=== PATIENT | male | born 1990 | race African-American/Black ===

== ENCOUNTER 2020-11-03 18:11 | Inpatient (IN) | payer OTHER ==
[2020-11-03 20:13] VITALS: BP 115/71; PULSE 78; TEMP 97.8; BMI 29.4
[2020-11-03] MEDS ORDERED: LORazepam 1 MG TABLET PO PRN (21:16)
[2020-11-03] MEDS ORDERED: IBUPROFEN 400 MG TABLET (FP) PO PRN (21:16)
[2020-11-03] MEDS ORDERED: MENTHOL/PHENOL 1 EACH UD MM PRN (21:16)
[2020-11-03] MEDS ORDERED: METHOCARBAMOL 500 MG TABLET PO PRN (21:16)
[2020-11-03] MEDS ORDERED: MAGNESIUM HYDROX 2400MG/30ML ORAL SUSPENSION 30 ML CUP PO PRN (21:16)
[2020-11-03] MEDS ORDERED: MAG HYDROX/AL HYDROX/SIMETH 30 ML UNIT-DOSE CUP PO PRN (21:16)
[2020-11-03] MEDS ORDERED: MAGNESIUM CITRATE 300 ML BOTTLE PO PRN (21:16)
[2020-11-03] MEDS ORDERED: ACETAMINOPHEN 325 MG TABLET (FP) PO PRN ×2 (21:16)
[2020-11-03] MEDS ORDERED: ONDANSETRON *ODT* 4 MG TABLET SL PRN (21:16)
[2020-11-03] MEDS ORDERED: BISMUTH SUBSALICYLATE 524 MG/30 ML UD PO PRN (21:16)
[2020-11-03] MEDS ORDERED: MELATONIN 5 MG TABLETS PO SCH (22:00)
[2020-11-03] MEDS ORDERED: THIAMINE HCL 100 MG TABLET (FP) PO SCH (22:00)
[2020-11-03] MEDS ORDERED: INSULIN SLIDING SCALE (NOVOLOG) 1 VIAL SQ SCH ×2 (22:00)
[2020-11-03] MEDS ORDERED: LORazepam 2 MG TABLET PO SCH (23:00)
[2020-11-04] MEDS ORDERED: PRENATAL VITAMINS W/ FOLIC ACID TABLET (FP) PO SCH (10:00)
[2020-11-05] MEDS ORDERED: LORazepam 1 MG TABLET PO SCH (05:00)
[2020-11-06] MEDS ORDERED: LORazepam 0.5 MG TABLET PO PRN
[2020-11-06] MEDS ORDERED: LORazepam 0.5 MG TABLET PO SCH (05:00)
[2020-11-07] MEDS ORDERED: LORazepam 0.5 MG TABLET PO ONE (05:00)
== END 2020-11-04 07:35 | disposition short-term general hospital (02) | DRG 775 ==
LOC: YASAS 18:11 → Y6N 21:49
PROVIDERS: ADMIT Allergy & Immunology; ATTEND Allergy & Immunology
PROC: HZ2ZZZZ Detoxification Services for Substance Abuse Treatment (ICD-10-PCS; principal; 2020-11-03)
DX: F10.230 Alcohol dependence with withdrawal, uncomplicated (principal); K74.60 Unspecified cirrhosis of liver; E11.9 Type 2 diabetes mellitus without complications; R17 Unspecified jaundice; R60.0 Localized edema; Z87.891 Personal history of nicotine dependence; Z56.0 Unemployment, unspecified; Z59.0 Homelessness
CPT/HCPCS: 82962; C9803; U0003; U0005

== ENCOUNTER 2020-11-03 22:37 | Inpatient (IN) | payer OTHER ==
[2020-11-03 23:42] LABS: BASO % 1.3 % (0-2.0); EOS % 4.6 % (0-4.5); HEMATOCRIT 22.8 % (35.4-49); HEMOGLOBIN 7.7 GM/dL (11.7-16.9); LYMPH % 37.5 % (8-40); MCH 34.1 pg (25.7-33.7); MCHC 33.9 g/dl (32.0-35.9); MEAN CELL VOLUME 100.6 fl (80-96); MEAN PLT VOLUME 9.1 fl (7.5-11.1); MONO % 10.2 % (3.8-10.2); NEUT % 46.4 % (42.8-82.8); PLATELET COUNT 46 K/MM3 (134-434); RBC 2.26 M/mm3 (4.00-5.60); RDW 18.6 % (11.9-15.9); WHITE BLOOD COUNT 2.7 K/mm3 (4.0-10.0)
[2020-11-03 23:51] LABS: INR 1.66 (0.83-1.09); PROTHROMBIN TIME (PATIENT) 20.1 SEC (9.7-13.0)
[2020-11-03 23:54] LABS: ACTIVATED PTT 37.2 SECONDS (25.2-36.5)
[2020-11-04 00:01] LABS: CHLORIDE 114 mmol/L (98-107); SODIUM 145 mmol/L (136-145)
[2020-11-04 00:03] LABS: ALBUMIN 1.8 g/dl (3.4-5.0); ANION GAP 5 MMOL/L (8-16); CALCIUM 7.3 mg/dL (8.5-10.1); CO2 26 mmol/L (21-32)
[2020-11-04 00:04] LABS: GLUCOSE,RANDOM 103 mg/dL (74-106)
[2020-11-04 00:06] LABS: SGOT/AST 116 U/L (15-37); SGPT/ALT 40 U/L (13-61)
[2020-11-04 00:07] LABS: CREATININE 0.8 mg/dL (0.55-1.3)
[2020-11-04 00:08] LABS: BILIRUBIN,TOTAL 5.8 mg/dL (0.2-1); TOT PROT 4.8 g/dl (6.4-8.2)
[2020-11-04 00:09] LABS: ALK PHOS 347 U/L (45-117)
[2020-11-04 01:55] LABS: BILIRUBIN,DIRECT 4.8 mg/dL (0.0-0.2)
[2020-11-04] MEDS ORDERED: POTASSIUM CHLORIDE ORAL LIQUID 20 MEQ/15 ML PO ONE (02:55)
[2020-11-04] MEDS ORDERED: POTASSIUM CHLORIDE ORAL LIQUID 20 MEQ/15 ML ONE (02:58)
[2020-11-04] MEDS ORDERED: FOLIC ACID INJECTION - 1 MG, THIAMINE HCL 100 MG, MULTIVIT INJECTION ADULT 10 ML in SOD... IVPB ONE (03:07)
[2020-11-04 03:24] LABS: LIPASE 217 U/L (73-393)
[2020-11-04] MEDS ORDERED: LORazepam 2 MG/ML SDV VIAL IVPUSH SCH (06:00)
[2020-11-04] MEDS ORDERED: LORazepam 2 MG/ML SDV VIAL IVPUSH PRN (06:09)
[2020-11-04] MEDS: INSULIN SLIDING SCALE (NOVOLOG) 1 VIAL SQ SCH ×4 (06:34→21:48)
[2020-11-04 07:37] VITALS: BMI 28.0
[2020-11-04] MEDS ORDERED: LACTULOSE 20 GM/30 ML UDC (FOR ORAL USE ONLY) PO PRN ×2 (10:00)
[2020-11-04] MEDS: SPIRONOLACTONE 25 MG TABLET PO SCH (10:13)
[2020-11-04] MEDS: FUROSEMIDE 40 MG TABLET (FP) PO SCH (10:14)
[2020-11-04] MEDS: MULTIVITAMINS (DAILY MVI) TABLET (FP) PO SCH (10:14)
[2020-11-04] MEDS: THIAMINE HCL 100 MG TABLET (FP) PO SCH (10:14)
[2020-11-04] MEDS: FOLIC ACID 1 MG TABLET (FP) PO SCH (10:14)
[2020-11-04] MEDS: LACTULOSE 20 GM/30 ML UDC (FOR ORAL USE ONLY) PO SCH ×3 (10:14→21:48)
[2020-11-04] MEDS: PrednisoLONE 15 MG/5 ML UNIT-DOSE CUP PO SCH (10:15)
[2020-11-04 10:45] LABS: HEMATOCRIT 24.2 % (35.4-49); HEMOGLOBIN 8.2 GM/dL (11.7-16.9); MCH 34.4 pg (25.7-33.7); MCHC 34.1 g/dl (32.0-35.9); MEAN CELL VOLUME 100.9 fl (80-96); MEAN PLT VOLUME 8.3 fl (7.5-11.1); RDW 18.6 % (11.9-15.9); WHITE BLOOD COUNT 3.4 K/mm3 (4.0-10.0)
[2020-11-04 10:51] LABS: INR 1.66 (0.83-1.09); PROTHROMBIN TIME (PATIENT) 19.8 SEC (9.7-13.0)
[2020-11-04 10:52] LABS: PLATELET COUNT 34 K/MM3 (134-434)
[2020-11-04 11:08] LABS: CALCIUM 7.6 mg/dL (8.5-10.1)
[2020-11-04 11:09] LABS: ALBUMIN 1.7 g/dl (3.4-5.0)
[2020-11-04 11:10] LABS: MAGNESIUM 1.3 mg/dL (1.8-2.4)
[2020-11-04 11:12] LABS: PHOSPHOROUS 2.5 mg/dL (2.5-4.9)
[2020-11-04 11:13] LABS: BILIRUBIN,TOTAL 6.8 mg/dL (0.2-1); CREATININE 0.7 mg/dL (0.55-1.3); TOT PROT 4.7 g/dl (6.4-8.2)
[2020-11-05] MEDS: INSULIN SLIDING SCALE (NOVOLOG) 1 VIAL SQ SCH ×4 (07:09→21:33)
[2020-11-05] MEDS: LACTULOSE 20 GM/30 ML UDC (FOR ORAL USE ONLY) PO SCH ×3 (07:09→21:29)
[2020-11-05 08:19] LABS: HEMATOCRIT 23.4 % (35.4-49); HEMOGLOBIN 8.3 GM/dL (11.7-16.9); MCH 35.2 pg (25.7-33.7); MCHC 35.4 g/dl (32.0-35.9); MEAN CELL VOLUME 99.6 fl (80-96); MEAN PLT VOLUME 8.8 fl (7.5-11.1); PLATELET COUNT 37 K/MM3 (134-434); RBC 2.35 M/mm3 (4.00-5.60); RDW 18.1 % (11.9-15.9); WHITE BLOOD COUNT 4.7 K/mm3 (4.0-10.0)
[2020-11-05 08:40] LABS: CHLORIDE 110 mmol/L (98-107); SODIUM 143 mmol/L (136-145)
[2020-11-05 08:58] LABS: ALBUMIN 1.7 g/dl (3.4-5.0); BLOOD UREA NITROGEN 9.7 mg/dL (7-18); CO2 26 mmol/L (21-32); GLUCOSE,RANDOM 98 mg/dL (74-106)
[2020-11-05 08:59] LABS: CALCIUM 7.5 mg/dL (8.5-10.1); MAGNESIUM 1.1 mg/dL (1.8-2.4)
[2020-11-05 09:02] LABS: CREATININE 0.9 mg/dL (0.55-1.3); SGOT/AST 86 U/L (15-37); SGPT/ALT 35 U/L (13-61)
[2020-11-05 09:03] LABS: BILIRUBIN,TOTAL 7.2 mg/dL (0.2-1); PHOSPHOROUS 2.5 mg/dL (2.5-4.9)
[2020-11-05 09:04] LABS: TOT PROT 4.7 g/dl (6.4-8.2)
[2020-11-05] MEDS ORDERED: LORazepam 1 MG TABLET PO PRN (09:33)
[2020-11-05 09:42] LABS: ALK PHOS 258 U/L (45-117); ANION GAP 7 MMOL/L (8-16)
[2020-11-05] MEDS: THIAMINE HCL 100 MG TABLET (FP) PO SCH (10:48)
[2020-11-05] MEDS: FOLIC ACID 1 MG TABLET (FP) PO SCH (10:48)
[2020-11-05] MEDS: MULTIVITAMINS (DAILY MVI) TABLET (FP) PO SCH (10:48)
[2020-11-05] MEDS: FUROSEMIDE 40 MG TABLET (FP) PO SCH (10:48)
[2020-11-05] MEDS: LORazepam 1 MG TABLET PO SCH ×3 (10:49→23:57)
[2020-11-05] MEDS: SPIRONOLACTONE 25 MG TABLET PO SCH (10:49)
[2020-11-05] MEDS: PrednisoLONE 15 MG/5 ML UNIT-DOSE CUP PO SCH (10:50)
[2020-11-05] MEDS ORDERED: POTASSIUM CHLORIDE TABS 20 MEQ TABLET.ER (FP) PO ONE (10:53)
[2020-11-05] MEDS ORDERED: MAGNESIUM SULF 50% (8.12 MEQ/2 ML-1 GM VIAL) IVPB ONE (11:15)
[2020-11-06] MEDS: LACTULOSE 20 GM/30 ML UDC (FOR ORAL USE ONLY) PO SCH ×3 (06:04→23:23)
[2020-11-06] MEDS: LORazepam 1 MG TABLET PO SCH ×4 (06:04→23:24)
[2020-11-06] MEDS: INSULIN SLIDING SCALE (NOVOLOG) 1 VIAL SQ SCH ×4 (06:13→23:25)
[2020-11-06 08:12] LABS: BASO % 0.3 % (0-2.0); EOS % 1.7 % (0-4.5); HEMATOCRIT 25.4 % (35.4-49); LYMPH % 19.6 % (8-40); MCH 35.3 pg (25.7-33.7); MCHC 35.4 g/dl (32.0-35.9); MEAN CELL VOLUME 99.6 fl (80-96); MEAN PLT VOLUME 8.9 fl (7.5-11.1); MONO % 6.6 % (3.8-10.2); NEUT % 71.8 % (42.8-82.8); PLATELET COUNT 41 K/MM3 (134-434); RBC 2.55 M/mm3 (4.00-5.60); RDW 17.7 % (11.9-15.9); WHITE BLOOD COUNT 6.1 K/mm3 (4.0-10.0)
[2020-11-06 08:39] LABS: CHLORIDE 106 mmol/L (98-107); SODIUM 140 mmol/L (136-145)
[2020-11-06 08:42] LABS: CALCIUM 7.6 mg/dL (8.5-10.1)
[2020-11-06 08:43] LABS: ALBUMIN 1.7 g/dl (3.4-5.0); BLOOD UREA NITROGEN 9.5 mg/dL (7-18); CO2 26 mmol/L (21-32); GLUCOSE,RANDOM 108 mg/dL (74-106); MAGNESIUM 1.3 mg/dL (1.8-2.4)
[2020-11-06 08:46] LABS: PHOSPHOROUS 2.4 mg/dL (2.5-4.9); SGOT/AST 72 U/L (15-37); SGPT/ALT 31 U/L (13-61)
[2020-11-06 08:47] LABS: BILIRUBIN,TOTAL 6.5 mg/dL (0.2-1); TOT PROT 4.9 g/dl (6.4-8.2)
[2020-11-06 08:49] LABS: ALK PHOS 251 U/L (45-117)
[2020-11-06 08:54] LABS: ANION GAP 7 MMOL/L (8-16)
[2020-11-06] MEDS ORDERED: PT OWN MED DRAWER 7, Y5N ONE (09:50)
[2020-11-06] MEDS: SPIRONOLACTONE 25 MG TABLET PO SCH (09:54)
[2020-11-06] MEDS: THIAMINE HCL 100 MG TABLET (FP) PO SCH (09:54)
[2020-11-06] MEDS: PrednisoLONE 15 MG/5 ML UNIT-DOSE CUP PO SCH (09:55)
[2020-11-06] MEDS: MULTIVITAMINS (DAILY MVI) TABLET (FP) PO SCH (09:55)
[2020-11-06] MEDS: FUROSEMIDE 40 MG TABLET (FP) PO SCH ×2 (09:55→10:22)
[2020-11-06] MEDS: FOLIC ACID 1 MG TABLET (FP) PO SCH (09:55)
[2020-11-06] MEDS ORDERED: POTASSIUM CHLORIDE TABS 20 MEQ TABLET.ER (FP) PO ONE (11:30)
[2020-11-06] MEDS ORDERED: MAGNESIUM 2GM/50ML STERILE WATER IVPB IVPB ONE (11:30)
[2020-11-06] MEDS ORDERED: POTASSIUM PHOSPHATE 30 MM in SODIUM CHLORIDE 500 ML IVPB ONE (12:00)
[2020-11-06 18:17] LABS: CALCIUM 7.9 mg/dL (8.5-10.1)
[2020-11-06 18:18] LABS: BLOOD UREA NITROGEN 9.1 mg/dL (7-18)
[2020-11-06 18:21] LABS: CREATININE 1.1 mg/dL (0.55-1.3)
[2020-11-06] MEDS: RIFAXIMIN 550 MG TABLET (UD) PO SCH (23:25)
[2020-11-07] MEDS: LORazepam 1 MG TABLET PO SCH ×4 (05:21→22:10)
[2020-11-07] MEDS: LACTULOSE 20 GM/30 ML UDC (FOR ORAL USE ONLY) PO SCH ×3 (05:21→22:09)
[2020-11-07] MEDS: INSULIN SLIDING SCALE (NOVOLOG) 1 VIAL SQ SCH ×4 (06:31→22:10)
[2020-11-07] MEDS ORDERED: POTASSIUM CHLORIDE TABS 20 MEQ TABLET.ER (FP) PO ONE (09:00)
[2020-11-07 10:04] LABS: BASO % 0.3 % (0-2.0); EOS % 1.2 % (0-4.5); HEMATOCRIT 28.1 % (35.4-49); HEMOGLOBIN 9.8 GM/dL (11.7-16.9); MCH 35.2 pg (25.7-33.7); MCHC 34.8 g/dl (32.0-35.9); MEAN CELL VOLUME 101.2 fl (80-96); MEAN PLT VOLUME 9.7 fl (7.5-11.1); NEUT % 79.5 % (42.8-82.8); PLATELET COUNT 47 K/MM3 (134-434); RBC 2.78 M/mm3 (4.00-5.60); RDW 17.7 % (11.9-15.9); WHITE BLOOD COUNT 8.1 K/mm3 (4.0-10.0)
[2020-11-07 10:05] LABS: INR 1.9 (0.83-1.09); PROTHROMBIN TIME (PATIENT) 22.9 SEC (9.7-13.0)
[2020-11-07 10:23] LABS: CALCIUM 7.9 mg/dL (8.5-10.1)
[2020-11-07] MEDS: SPIRONOLACTONE 25 MG TABLET PO SCH (10:23)
[2020-11-07] MEDS: FUROSEMIDE 40 MG TABLET (FP) PO SCH (10:23)
[2020-11-07 10:24] LABS: BLOOD UREA NITROGEN 9.3 mg/dL (7-18)
[2020-11-07] MEDS: FOLIC ACID 1 MG TABLET (FP) PO SCH (10:24)
[2020-11-07] MEDS: RIFAXIMIN 550 MG TABLET (UD) PO SCH ×2 (10:24→22:10)
[2020-11-07] MEDS: THIAMINE HCL 100 MG TABLET (FP) PO SCH (10:25)
[2020-11-07] MEDS: PrednisoLONE 15 MG/5 ML UNIT-DOSE CUP PO SCH (10:25)
[2020-11-07] MEDS: MULTIVITAMINS (DAILY MVI) TABLET (FP) PO SCH (10:25)
[2020-11-07 10:26] LABS: CREATININE 1.1 mg/dL (0.55-1.3)
[2020-11-07 10:28] LABS: BILIRUBIN,TOTAL 6.2 mg/dL (0.2-1); TOT PROT 5.5 g/dl (6.4-8.2)
[2020-11-07] MEDS: POTASSIUM CHLORIDE TABS 20 MEQ TABLET.ER (FP) PO SCH (22:10)
[2020-11-08] MEDS ORDERED: LORazepam 0.5 MG TABLET PO PRN
[2020-11-08] MEDS: LORazepam 0.5 MG TABLET PO SCH ×4 (06:00→23:27)
[2020-11-08] MEDS: LACTULOSE 20 GM/30 ML UDC (FOR ORAL USE ONLY) PO SCH ×3 (06:00→22:03)
[2020-11-08] MEDS: INSULIN SLIDING SCALE (NOVOLOG) 1 VIAL SQ SCH ×4 (06:03→22:04)
[2020-11-08 09:08] LABS: HEMATOCRIT 30.5 % (35.4-49); HEMOGLOBIN 10.5 GM/dL (11.7-16.9); MCH 34.9 pg (25.7-33.7); MCHC 34.6 g/dl (32.0-35.9); MEAN PLT VOLUME 8.6 fl (7.5-11.1); PLATELET COUNT 55 K/MM3 (134-434); RBC 3.02 M/mm3 (4.00-5.60); RDW 18.1 % (11.9-15.9); WHITE BLOOD COUNT 9.7 K/mm3 (4.0-10.0)
[2020-11-08 09:30] LABS: CALCIUM 8.4 mg/dL (8.5-10.1)
[2020-11-08 09:31] LABS: ALBUMIN 2.2 g/dl (3.4-5.0); BLOOD UREA NITROGEN 11.3 mg/dL (7-18)
[2020-11-08 09:34] LABS: CREATININE 1.2 mg/dL (0.55-1.3)
[2020-11-08] MEDS ORDERED: LORazepam 2 MG/ML SDV VIAL IVPUSH ONE (09:35)
[2020-11-08 09:36] LABS: BILIRUBIN,TOTAL 7.1 mg/dL (0.2-1)
[2020-11-08] MEDS: POTASSIUM CHLORIDE TABS 20 MEQ TABLET.ER (FP) PO SCH ×2 (10:01→22:04)
[2020-11-08] MEDS: RIFAXIMIN 550 MG TABLET (UD) PO SCH ×2 (10:01→22:05)
[2020-11-08] MEDS: MULTIVITAMINS (DAILY MVI) TABLET (FP) PO SCH (10:01)
[2020-11-08] MEDS: THIAMINE HCL 100 MG TABLET (FP) PO SCH (10:01)
[2020-11-08] MEDS: FOLIC ACID 1 MG TABLET (FP) PO SCH (10:01)
[2020-11-08] MEDS: SPIRONOLACTONE 25 MG TABLET PO SCH (10:02)
[2020-11-08] MEDS: FUROSEMIDE 40 MG TABLET (FP) PO SCH (10:02)
[2020-11-08] MEDS ORDERED: PT OWN MED DRAWER 7, Y5N ONE (10:20)
[2020-11-08] MEDS: PrednisoLONE 15 MG/5 ML UNIT-DOSE CUP PO SCH (12:01)
[2020-11-09] MEDS ORDERED: LORazepam 0.5 MG TABLET PO ONE (05:00)
[2020-11-09] MEDS: LACTULOSE 20 GM/30 ML UDC (FOR ORAL USE ONLY) PO SCH ×3 (05:31→21:11)
[2020-11-09] MEDS: INSULIN SLIDING SCALE (NOVOLOG) 1 VIAL SQ SCH ×4 (06:07→21:11)
[2020-11-09 08:58] LABS: HEMATOCRIT 30.2 % (35.4-49); HEMOGLOBIN 10.6 GM/dL (11.7-16.9); MCH 35.6 pg (25.7-33.7); MEAN CELL VOLUME 101.6 fl (80-96); MEAN PLT VOLUME 9.2 fl (7.5-11.1); PLATELET COUNT 64 K/MM3 (134-434); RBC 2.98 M/mm3 (4.00-5.60); RDW 17.9 % (11.9-15.9)
[2020-11-09 09:30] LABS: ALBUMIN 2.3 g/dl (3.4-5.0); BLOOD UREA NITROGEN 13.4 mg/dL (7-18); CALCIUM 8.4 mg/dL (8.5-10.1)
[2020-11-09 09:31] LABS: MAGNESIUM 1.4 mg/dL (1.8-2.4)
[2020-11-09 09:33] LABS: CREATININE 1.3 mg/dL (0.55-1.3)
[2020-11-09 09:34] LABS: PHOSPHOROUS 2.8 mg/dL (2.5-4.9)
[2020-11-09 09:35] LABS: BILIRUBIN,TOTAL 7.1 mg/dL (0.2-1); TOT PROT 6.2 g/dl (6.4-8.2)
[2020-11-09] MEDS: THIAMINE HCL 100 MG TABLET (FP) PO SCH (09:43)
[2020-11-09] MEDS: FOLIC ACID 1 MG TABLET (FP) PO SCH (09:43)
[2020-11-09] MEDS: MULTIVITAMINS (DAILY MVI) TABLET (FP) PO SCH (09:43)
[2020-11-09] MEDS: RIFAXIMIN 550 MG TABLET (UD) PO SCH ×2 (09:43→21:11)
[2020-11-09] MEDS: FUROSEMIDE 40 MG TABLET (FP) PO SCH (09:43)
[2020-11-09] MEDS: POTASSIUM CHLORIDE TABS 20 MEQ TABLET.ER (FP) PO SCH ×2 (09:43→21:11)
[2020-11-09] MEDS: SPIRONOLACTONE 25 MG TABLET PO SCH (09:43)
[2020-11-09] MEDS ORDERED: MAGNESIUM SULF 50% (8.12 MEQ/2 ML-1 GM VIAL) IVPB ONE (10:15)
[2020-11-09 11:52] LABS: BASO % 0.3 % (0-2.0); EOS % 1.3 % (0-4.5); HEMATOCRIT 30.7 % (35.4-49); HEMOGLOBIN 10.6 GM/dL (11.7-16.9); LYMPH % 14.8 % (8-40); MCHC 34.4 g/dl (32.0-35.9); MEAN CELL VOLUME 101.8 fl (80-96); MEAN PLT VOLUME 9.8 fl (7.5-11.1); MONO % 10.4 % (3.8-10.2); NEUT % 73.2 % (42.8-82.8); PLATELET COUNT 67 K/MM3 (134-434); RBC 3.02 M/mm3 (4.00-5.60); RDW 17.7 % (11.9-15.9); WHITE BLOOD COUNT 8.5 K/mm3 (4.0-10.0)
[2020-11-09 12:03] LABS: INR 1.77 (0.83-1.09); PROTHROMBIN TIME (PATIENT) 21.4 SEC (9.7-13.0)
[2020-11-09] MEDS: PrednisoLONE 15 MG/5 ML UNIT-DOSE CUP PO SCH (13:08)
[2020-11-09] MEDS ORDERED: INSULIN (NOVOLOG) ASPART 100 UNITS/ML 10ML VIAL SQ ONE (22:15)
[2020-11-10] MEDS: LACTULOSE 20 GM/30 ML UDC (FOR ORAL USE ONLY) PO SCH ×3 (06:15→22:10)
[2020-11-10] MEDS: INSULIN SLIDING SCALE (NOVOLOG) 1 VIAL SQ SCH ×4 (06:15→22:07)
[2020-11-10 08:28] LABS: INR 1.77 (0.83-1.09); PROTHROMBIN TIME (PATIENT) 21.1 SEC (9.7-13.0)
[2020-11-10 08:31] LABS: ACTIVATED PTT 32.9 SECONDS (25.2-36.5)
[2020-11-10 08:47] LABS: ALBUMIN 2.2 g/dl (3.4-5.0); BLOOD UREA NITROGEN 17.7 mg/dL (7-18); CALCIUM 8.5 mg/dL (8.5-10.1)
[2020-11-10 08:50] LABS: BILIRUBIN,TOTAL 7.2 mg/dL (0.2-1); CREATININE 1.2 mg/dL (0.55-1.3); TOT PROT 5.8 g/dl (6.4-8.2)
[2020-11-10] MEDS ORDERED: PT OWN MED DRAWER 7, Y5N ONE (10:30)
[2020-11-10] MEDS: SPIRONOLACTONE 25 MG TABLET PO SCH (10:33)
[2020-11-10] MEDS: FOLIC ACID 1 MG TABLET (FP) PO SCH (10:33)
[2020-11-10] MEDS: MULTIVITAMINS (DAILY MVI) TABLET (FP) PO SCH (10:34)
[2020-11-10] MEDS: POTASSIUM CHLORIDE TABS 20 MEQ TABLET.ER (FP) PO SCH ×2 (10:34→22:11)
[2020-11-10] MEDS: RIFAXIMIN 550 MG TABLET (UD) PO SCH ×2 (10:34→22:11)
[2020-11-10] MEDS: PrednisoLONE 15 MG/5 ML UNIT-DOSE CUP PO SCH (10:35)
[2020-11-10] MEDS: FUROSEMIDE 40 MG TABLET (FP) PO SCH (10:35)
[2020-11-10] MEDS: THIAMINE HCL 100 MG TABLET (FP) PO SCH (10:35)
[2020-11-10] MEDS ORDERED: INSULIN (LEVEMIR) 100 UNITS/ML UNITS SQ ONE (21:13)
[2020-11-10] MEDS ORDERED: MELATONIN 5 MG TABLETS PO SCH (22:00)
[2020-11-11] MEDS: LACTULOSE 20 GM/30 ML UDC (FOR ORAL USE ONLY) PO SCH (05:56)
[2020-11-11] MEDS: INSULIN SLIDING SCALE (NOVOLOG) 1 VIAL SQ SCH ×2 (06:03→14:49)
[2020-11-11 07:30] VITALS: BP 115/75; PULSE 95; TEMP 98.8
[2020-11-11 09:05] LABS: INR 1.53 (0.83-1.09); PROTHROMBIN TIME (PATIENT) 18.6 SEC (9.7-13.0)
[2020-11-11] MEDS: RIFAXIMIN 550 MG TABLET (UD) PO SCH (09:53)
[2020-11-11] MEDS: THIAMINE HCL 100 MG TABLET (FP) PO SCH (09:53)
[2020-11-11] MEDS: FUROSEMIDE 40 MG TABLET (FP) PO SCH (09:53)
[2020-11-11] MEDS: POTASSIUM CHLORIDE TABS 20 MEQ TABLET.ER (FP) PO SCH (09:53)
[2020-11-11] MEDS: MULTIVITAMINS (DAILY MVI) TABLET (FP) PO SCH (09:53)
[2020-11-11] MEDS: FOLIC ACID 1 MG TABLET (FP) PO SCH (09:53)
[2020-11-11] MEDS: SPIRONOLACTONE 25 MG TABLET PO SCH (09:54)
[2020-11-11 10:14] LABS: BLOOD UREA NITROGEN 22.9 mg/dL (7-18)
[2020-11-11 10:17] LABS: CREATININE 1.5 mg/dL (0.55-1.3)
[2020-11-11 10:18] LABS: BILIRUBIN,TOTAL 8.6 mg/dL (0.2-1)
[2020-11-11 10:19] LABS: TOT PROT 7.4 g/dl (6.4-8.2)
[2020-11-11 10:29] LABS: ALBUMIN 2.8 g/dl (3.4-5.0); CALCIUM 9.8 mg/dL (8.5-10.1)
== END 2020-11-11 11:19 | disposition home or self-care (01) | DRG 280 ==
LOC: JER 22:37 → JERBED 11-04 02:55 → J5S 11-04 05:53
PROVIDERS: ADMIT Hospitalist
PROC: HZ2ZZZZ Detoxification Services for Substance Abuse Treatment (ICD-10-PCS; principal; 2020-11-04)
DX: K70.30 Alcoholic cirrhosis of liver without ascites (principal); E87.6 Hypokalemia; E80.6 Other disorders of bilirubin metabolism; R16.1 Splenomegaly, not elsewhere classified; K86.0 Alcohol-induced chronic pancreatitis; K70.10 Alcoholic hepatitis without ascites; K72.90 Hepatic failure, unspecified without coma; E88.09 Other disorders of plasma-protein metabolism, not elsewhere classified; D61.818 Other pancytopenia; E83.42 Hypomagnesemia; K76.6 Portal hypertension; D69.6 Thrombocytopenia, unspecified; F10.230 Alcohol dependence with withdrawal, uncomplicated; D52.0 Dietary folate deficiency anemia
CPT/HCPCS: 36415; 70450-TC; 71045-TC-FY; 72125-TC; 74177-TC; 74183-TC; 76705-TC; 80048; 80053; 80074; 82105; 82140; 82248; 82272; 82607; 82746; 82962; 83036; 83540; 83550; 83690; 83735; 84100; 84443; 84484; 85025; 85027; 85610; 85730; 86140; 86780; 86803; 99285-25; A9579